=== PATIENT | female | born 1990 | race Caucasian/White ===

== ENCOUNTER 2019-04-18 22:40 | Emergency (ER) | payer OTHER, SELFPAY ==
[~2019-04-18] VITALS: Ht 167.6 cm; Wt 87.0 kg
[2019-04-19] MEDS ORDERED: SODIUM CHLORIDE 0.9% 1,000 ML IV ONE (00:10)
[2019-04-19] MEDS ORDERED: LORAZEPAM 2MG/ML CPJ IV ONE (00:15)
[2019-04-19] MEDS ORDERED: OLANZAPINE 10 MG/VIAL IM ONE (01:00)
[2019-04-19] MEDS ORDERED: LORAZEPAM 2MG/ML CPJ IM ONE (01:00)
[2019-04-19 01:51] LABS: BASOPHILS % 0.6 % (0.0-2.0); EOSINOPHILS % 2.2 % (0.0-5.0); HEMATOCRIT. 36.1 % (36.0-48.0); HEMOGLOBIN. 12.1 g/dL (12.0-16.0); LYMPHOCYTES % 31.9 % (20.0-50.0); MEAN CORPUSCULAR HEMOGLOBIN 29.5 pg (28.0-32.0); MEAN CORPUSCULAR VOLUME 88.3 fL (81.0-99.0); MEAN PLATELET VOLUME 7.4 fl (7.4-10.4); MONOCYTES % 8.7 % (2.0-8.0); NEUTROPHILS % 56.6 % (40.0-76.0); PLATELET 308 x1000/uL (130-400); RED BLOOD CELL COUNT 4.08 mill/uL (4.2-5.4); RED CELL DISTRIBUTION WIDTH 15.6 % (11.6-14.6)
[2019-04-19 01:59] LABS: CHLORIDE 107 mEq/L (98-107)
[2019-04-19 02:03] LABS: ETHANOL BLOOD < 10 mg/dL
[2019-04-19 02:08] LABS: CREATINE KINASE 242 IU/L (26-192)
[2019-04-19 16:43] VITALS: BP 112/68
== END 2019-04-19 16:44 | disposition home or self-care (01) ==
LOC: ER 04-19 00:04
DX: T50.991A Poisoning by other drugs, medicaments and biological substances, accidental (unintentional), initial encounter (principal); G92 Toxic encephalopathy; R03.0 Elevated blood-pressure reading, without diagnosis of hypertension; Y92.410 Unspecified street and highway as the place of occurrence of the external cause; Z59.0 Homelessness
CPT/HCPCS: 36415; 80053; 80307; 80320; 80329; 82140; 82550; 83690; 83880; 84443; 84484; 85025; 93005; 96372; 99284; J2060; J3490; J7030; G0480